=== PATIENT | male | born 2000 | race African-American/Black ===

== ENCOUNTER 2024-06-20 15:39 | Emergency (ER) | payer SELFPAY ==
[~2024-06-20] VITALS: Ht 177.8 cm; Wt 95.0 kg
[2024-06-20 15:43] VITALS: BP 104/46; PULSE 61; RESP 18; O2SAT 98
== END 2024-06-20 19:04 | disposition home or self-care (01) ==
LOC: ER 15:39
DX: F12.10 Cannabis abuse, uncomplicated (principal); Z98.890 Other specified postprocedural states
CPT/HCPCS: 99283